=== PATIENT | female | born 1990 | race American Indian/Alaskan Native ===

== ENCOUNTER 2020-05-10 16:54 | Emergency (ER) | payer SELFPAY ==
[2020-05-10 16:22] VITALS: BP 129/86
[2020-05-10] MEDS ORDERED: IBUPROFEN 800 MG TAB PO ONE (17:04)
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
== END 2020-05-10 19:00 | disposition home or self-care (01) ==
LOC: EDBD → EDUNIT# → ED 16:54
DX: S96.911A Strain of unspecified muscle and tendon at ankle and foot level, right foot, initial encounter (principal); S29.011A Strain of muscle and tendon of front wall of thorax, initial encounter; S13.4XXA Sprain of ligaments of cervical spine, initial encounter; S39.012A Strain of muscle, fascia and tendon of lower back, initial encounter; Z79.899 Other long term (current) drug therapy; V49.49XA Driver injured in collision with other motor vehicles in traffic accident, initial encounter; Y93.89 Activity, other specified; Y92.488 Other paved roadways as the place of occurrence of the external cause; Y99.8 Other external cause status
CPT/HCPCS: 70450; 71045; 72100; 72125